=== PATIENT | male | born 1980 | race Caucasian/White ===

== ENCOUNTER → 2020-09-03 | Outpatient (CLI) | payer BC ==
[2020-09-03 09:51] LABS: BUN/CREATININE RATIO 12 (0-10)
== END ==
LOC: CT 08:58
DX: I10 Essential (primary) hypertension (principal); Z86.79 Personal history of other diseases of the circulatory system
CPT/HCPCS: 36415; 71275; 80048; Q9967

== ENCOUNTER → 2021-08-30 | Outpatient (CLI) | payer BC | LOC: CT 08-23 09:30 | DX: I71.2 Thoracic aortic aneurysm, without rupture (principal); Z98.890 Other specified postprocedural states; I71.02 Dissection of abdominal aorta | CPT/HCPCS: 71275; Q9967 ==